=== PATIENT | female | born 1935 | race Caucasian/White ===

== ENCOUNTER → 2020-02-16 | Outpatient (CLI) | payer OTHER ==
[2020-02-16 12:11] LABS: BASOPHIL % 0.9 % (0-2); RED CELL DISTRIBUTION WIDTH 13.3 % (11.5-14.5)
[2020-02-16 12:19] LABS: ALKALINE PHOSPHATASE 132 U/L (46-116); ALT/SGPT 23 U/L (14-59); AST/SGOT 36 U/L (15-37); BILIRUBIN TOTAL 0.5 mg/dL (0.20-1.00); CALCIUM 9.9 mg/dL (8.5-10.1); CARBON DIOXIDE 28.2 mmol/L (21-32); CHLORIDE SERUM 97 mmol/L (98-107); CREATININE SERUM 0.9 mg/dL (0.6-1.0); GLUCOSE SERUM 117 mg/dL (74-106); SODIUM SERUM 134 mmol/L (136-145); TOTAL PROTEIN, SERUM 7.7 g/dL (6.4-8.2)
[2020-02-16 12:19] LABS: microscopic required? YES; urine erythrocyte 1+ (NEGATIVE)
[2020-02-16 12:21] LABS: ALBUMIN 2.7 g/dL (3.4-5.0)
[2020-02-16 13:51] LABS: PLATELET COUNT 558 x10^3mcL (130-400)
== END | disposition home or self-care (01) ==
LOC: LB 11:19
DX: R50.9 Fever, unspecified (principal)

== ENCOUNTER → 2020-02-22 | Outpatient (CLI) | payer OTHER, BC | END | disposition home or self-care (01) | LOC: RD 14:59 | DX: R93.89 Abnormal findings on diagnostic imaging of other specified body structures (principal) ==

== ENCOUNTER → 2020-07-13 | Outpatient (CLI) | payer OTHER, BC | END | disposition home or self-care (01) | LOC: RD 13:48 | PROVIDERS: ATTEND Internal Medicine Pulmonary Disease | DX: J44.9 Chronic obstructive pulmonary disease, unspecified (principal) ==